=== PATIENT | male | born 1955 | race Caucasian/White ===

== ENCOUNTER 2016-11-08 11:11 | Emergency (ER) | payer OTHER ==
--- NOTE | 2016-11-08 12:08 | DIAGNOSTIC IMAGING REPORT ---
PROCEDURE: XR CHEST 1 VIEW INDICATION: CHEST PAIN TECHNIQUE: Portable AP view 11:45 a.m. COMPARISON: None. FINDINGS: Lungs are clear. Heart and mediastinum are normal. Thorax is normal. IMPRESSION: 1. Negative chest.
--- NOTE | 2016-11-08 13:05 | ED NURSING NOTES ---
Clinical Report - Nurses [address] [place] [address] 11/08/2016 11:14 Patient: JULIA RODRIGUEZ TRIAGE Triage time 1112. Acuity: LEVEL 2. Chief Complaint: CHEST PAIN and DISCOMFORT. Alert. No acute distress. SEPSIS SCREEN: Sepsis Screen. Negative (no infection suspected/documented). PONCHO COMA SCORE: Poncho Coma Scale: 15- eyes open spontaneously (4); best verbal response- oriented x 4 (5); best motor response- obeys commands (6). --11:30 Cristin Weinberg R.N. 11:12 11/08/16. BP: 157/87. HR: 70 (regular). RR: 15. O2 saturation: 96%. Temp: 97.5 F (oral). Pain level now: 11/06. --11:30 Cristin Weinberg R.N. Weight: 117.9 kg stated. Height/Length: 74 inches Per Patient. BMI: 33.4. --11:12 Cristin Weinberg R.N. Medications PriLOSEC Oral. --11:13 Cristin Weinberg R.N. Ambien Oral. --11:14 Cristin Weinberg R.N. Cialis Oral. --11:39 Cristin Weinberg R.N. TraZODone HCl Oral. --11:40 Cristin Weinberg R.N. Medication/allergy information source: the patient. --11:30 Cristin Weinberg R.N. Allergies No Known Drug Allergy. --11:26 Cristin Weinberg R.N. History Arrived by private vehicle. Historian: patient. Accompanied by family. Primary physician (Dr. Camacho- [facility]). ( Pt states having CP for the past 4 days, SOB, denies dizziness. Went to [facility] earlier today and was told come the ER. An EKG was performed, pt did not want and ambulance, drove here to get further evaluation. Pt does state that when laying down "makes it better" activity sometimes makes it "worst".). Onset. (4 days). He has had difficulty breathing. Reports experiencing sweating episodes. No nausea, vomiting, fever or cough. 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 PAST MEDICAL HX: Immunizations: up-to-date. SOCIAL HX: Never smoker. Alcohol use; consumes beer occasionally. No drug use. No infectious disease exposure. ABUSE ASSESSMENT: No report of abuse. SELF HARM ASSESSMENT: A self harm assessment was performed. The patient answered "no" to the question "Do you have thoughts of harming or killing yourself?" and "Have you recently had thoughts about harming or killing others?". FALL RISK ASSESSMENT: Fall risk assessment completed. No fall risk identified. NUTRITIONAL RISK ASSESSMENT: The nutritional risk assessment revealed no deficiencies. FUNCTIONAL ASSESSMENT: Functional assessment: no impairments noted. LEARNING NEEDS ASSESSMENT: The learning needs assessment revealed no barriers. --11:30 Cristin Weinberg R.N. PROBLEMS: IBS. Allergic Rhinitis. Depression. Bronchitis. --11:26 Cristin Weinberg R.N. Interventions 11:17 11/08/16. ID band on patient. --11:30 Cristin Weinberg R.N. PHYSICAL ASSESSMENT Ambulatory to room. GENERAL / NEURO / PSYCH: Alert. Oriented X 4. Appears in no acute distress. HEENT: Mucous membranes are pink. RESPIRATORY: Respirations not labored. Chest nontender. Breath sounds within normal limits. CVS: Normal sinus rhythm noted. Heart sounds within normal limits. Pulses within normal limits. Capillary refill less than 2 seconds. GI / : Abdomen soft and nontender. EXTREMITIES: No lower extremity edema. SKIN: Skin is warm and dry. Normal skin turgor. Skin is non-tender. --11:33 Cristin Weinberg R.N. NURSING PROGRESS NOTES 11:34 11/08/2016 Site #1 started via IV in the left antecubital space with an 20g angiocath; one attempt. Blood drawn: rainbow set. Labeled in the presence of the patient and sent to the lab. Saline lock flushed. --11:34 Cristin Weinberg R.N. Cardiac rhythm: normal sinus rhythm. The initial plan of care for this patient has been created This plan of care was discussed with the patient. sales advisor, pulse oximeter and NIBP monitor placed on patient. Patient ID band checked for patient name, birthdate and medical record number: patient confirmed. Blood samples drawn from the left antecubital space by nurse per protocol ; labeled in presence of the patient and sent to lab: madiha set. Reassurance given. Patient identifiers checked. Call light placed in reach. Side rails up x 1. Bed placed in lowest position. Brakes of bed on. Patient ready for evaluation- ED physician notified. --11:34 Cristin Weinberg R.N. 11:30 11/08/16. BP: 153/81. HR: 76. RR: 16. O2 saturation: 100% on room air. Pain level now: 11/06. --11:34 Cristin Weinberg R.N. The patient is calm. Overall patient status is the same- he states feels the same. ( Pressure still is consistent as per pt). GENERAL / NEURO / PSYCH: Denies anxiety. HEENT: Denies headache. RESPIRATORY: Denies difficulty breathing. CVS: The patient reports chest pain. GI / : Denies nausea. SKIN: Skin is warm. Skin color within normal limits. --11:35 Cristin Weinberg R.N. EKG time: (1120 AM). EKG was ordered, performed by a tech and shown to the ED physician. --11:43 Cristin Weinberg R.N. EKG time: (1120). EKG was ordered, performed by a tech and shown to the ED physician. --11:49 Maxi Villa ER Tech1. DISPOSITION / DISCHARGE 13:13 11/08/2016 Site #1 removed upon discharge. Catheter intact. Bandage applied. --13:13 Fred Elmore R.N. 13:13 11/08/16. Condition at departure: improved. The goals identified in the patient's plan of care were met. No learning barriers present. Discharge instructions provided and reviewed with the patient. Reviewed warnings. Reviewed medication(s). Treatments reviewed. Patient verbalized understanding. Written instructions provided in Montenegrin. The patient was discharged by the physician. He was discharged home and accompanied by family. He left the Emergency Department ambulatory and via private vehicle. Family member driving. FALL RISK ASSESSMENT: Fall risk assessment completed. No fall risk identified. --13:13 Fred Elmore R.N. 13:12 11/08/16. BP: 148/70. HR: 80. RR: 14. O2 saturation: 99% on room air. Temp: 98.1 F (oral). --13:13 Fred Elmore R.N. 13:13 11/08/16. Departure time: 13:13. --13:13 Fred Elmore R.N. Locked/Released at 11/08/2016 13:19 by Fred Elmore R.N.
--- NOTE | 2016-11-08 13:05 | ED CLINICAL REPORT ---
Clinical Report - Physicians/Mid Levels [facility] [address] [place] [address] 11/08/2016 11:14 Patient: JULIA RODRIGUEZ Time Seen: 11:22; initial patient contact. Arrived- By private vehicle. Historian- patient. HISTORY OF PRESENT ILLNESS Chief Complaint: CHEST PAIN. This started about 4 days ago and is still present. The patient cannot recall the circumstances at the onset. It is described as pressure and it is described as located in the right chest and central chest area. No radiation. At its maximum, severity described as mild. When seen in the E.D., severity described as mild. Modifying factors- worsened by supine position. Relieved by upright position. No nausea, vomiting, difficulty breathing or diaphoresis. Similar symptoms previously: None. Recent medical care: The patient was seen recently in a clinic (EKG and sent here from ). REVIEW OF SYSTEMS No fever, chills, cough, pedal edema or calf pain. All systems otherwise negative, except as recorded above. PAST HISTORY IBS. Allergic Rhinitis. Depression. Bronchitis. Medications: TraZODone HCl Oral. Cialis Oral. Ambien Oral. PriLOSEC Oral. Allergies: No Known Drug Allergy. SOCIAL HISTORY Never smoker. Occasional alcohol use. No drug use. ADDITIONAL NOTES The nursing notes have been reviewed. PHYSICAL EXAM Vital Signs: 11/08/2016 11:12 BP: 157/87. HR: 70. RR: 15. O2 saturation: 96%. Temp: 97.5 F. Pain level now: 10. Have been reviewed. Hypertensive. Heart rate normal. Respiratory rate normal. Temperature normal. Oxygen saturation normal. Appearance: Alert. Oriented X3. No acute distress. Eyes: Eyes normal inspection. ENT: Pharynx normal. Neck: Normal inspection. CVS: Normal heart rate and rhythm. Heart sounds normal. Respiratory: No respiratory distress. Breath sounds normal. Abdomen: Soft and nontender. Bowel sounds normal. No organomegaly. No mass. Skin: Normal skin color. No rash. Extremities: No calf tenderness. No lower extremity edema. Neuro: Oriented X 3. LABS, X-RAYS, AND EKG EKG: EKG time: (1120). No acute process. No acute ischemia. Normal EKG. Normal sinus rhythm. Rate: 71. Normal P waves. Normal QRS complex. Normal axis. Normal ST and T waves. Prolonged QTc (465). Prior EKG unavailable. The study has been interpreted contemporaneously by me. The study has been independently viewed by me. The EKG appears to be a good tracing. Interpretation time: 1120. Chest X-ray: No acute disease. Normal lung markings present. No infiltrate. Views: AP. Technique: good. The X-rays were independently viewed by me and interpreted contemporaneously by me. Prior films were not available for comparison. Laboratory Tests: CBC w Diff: (DESIRAE: 11/08/2016 11:20) ( MsgRcvd 11/08/2016 11:45) Final results Test Result Flag Units (Reference) WHITE BLOOD COUNT 6.8 K/uL (4.5-11.5) RED BLOOD COUNT 4.92 M/uL (4.50-5.90) HEMOGLOBIN 14.5 gm/dL (13.5-17.5) HEMATOCRIT 43.4 % (41.0-53.0) MEAN CELL VOLUME 88 fL (80-100) MEAN CORPUSCULAR HGB 30 pg (26-34) MEAN CORPUSCULAR HGB CONC 33 g/dL (31-37) RED CELL DISTRIBUTION WIDTH 13.7 % (11.6-14.8) PLATELET COUNT 281 K/uL (150-400) NEUTROPHIL % 66.0 % (50-75) LYMPH % 24.0 L % (25-40) MONO % 7.3 % (3-14) EOSINOPHIL % 2.2 % (0-4) BASOPHIL % 0.5 % (0-2) CHEM 13 PANEL: (DESIRAE: 11/08/2016 11:20) ( MsgRcvd 11/08/2016 12:16) Final results Test Result Flag Units (Reference) GLUCOSE 89 mg/dL (70-110) BUN 20 H mg/dL (7-18) CREATININE 0.9 mg/dL (0.6-1.3) Estimated GFR >60 mL/min Estimated GFR- >60 mL/min Note: Persistent reduction over 3 months in eGFR<60 mL/min/1.73 m2 defines CKD. Patients with eGFR values>=60 mL/min/1.73 m2 may also have CKD if evidence ofpersistent proteinuria. Additional information may be foundat www.kidney.org. SODIUM 143 mmol/L (136-145) POTASSIUM 3.5 mmol/L (3.5-5.1) CHLORIDE 106 mmol/L (98-107) CARBON DIOXIDE 26 mmol/L (21-32) CALCIUM 8.7 mg/dL (8.5-10.1) TOTAL PROTEIN 7.2 g/dL (6.4-8.2) ALBUMIN 3.8 g/dL (3.3-5.0) BILIRUBIN, TOTAL 0.3 mg/dL (0.0-1.0) ALKALINE PHOSPHATASE 68 U/L (46-116) AST (SGOT) 19 U/L (15-37) ALT (SGPT) 22 U/L (12-78) MAGNESIUM 2.0 mg/dL (1.8-2.4) CPK 305 H U/L (24-260) CK-MB 2.8 ng/mL (0.5-3.2) %CKMB 0.9 % (0.0-4.0) TROPONIN I <0.05 ng/mL (0.00-1.5) TROPONIN REFERENCE RANGE:<0.1 NEGATIVE0.1-1.5 INDETERMINANT>1.5 POSITIVE . PROGRESS AND PROCEDURES Disposition: Discharged home in good condition. Condition: good. CLINICAL IMPRESSION Atypical chest pain .12 lead EKG performed. INSTRUCTIONS No strenuous activity today, tomorrow. Your Current Medications: CONTINUE TAKING THE FOLLOWING MEDICATIONS: Ambien Oral. Cialis Oral. PriLOSEC Oral. TraZODone HCl Oral. Follow-up: Follow up with your doctor in about two days if not better. Call for an appointment. Screening today revealed the patient's blood pressure to be in the hypertensive range. The patient should follow up with a primary care provider for blood pressure management. (Electronically signed by Leonardo Rodgers Dr. 11/08/2016 13:05)
--- NOTE | 2016-11-08 13:05 | ED NURSING NOTES ---
Clinical Report - Nurses [address] [place] [address] 11/08/2016 11:14 Patient: JULIA RODRIGUEZ TRIAGE Triage time 1112. Acuity: LEVEL 2. Chief Complaint: CHEST PAIN and DISCOMFORT. Alert. No acute distress. SEPSIS SCREEN: Sepsis Screen. Negative (no infection suspected/documented). PONCHO COMA SCORE: Poncho Coma Scale: 15- eyes open spontaneously (4); best verbal response- oriented x 4 (5); best motor response- obeys commands (6). --11:30 Cristin Weinberg R.N. 11:12 11/08/16. BP: 157/87. HR: 70 (regular). RR: 15. O2 saturation: 96%. Temp: 97.5 F (oral). Pain level now: 11/06. --11:30 Cristin Weinberg R.N. Weight: 117.9 kg stated. Height/Length: 74 inches Per Patient. BMI: 33.4. --11:12 Cristin Weinberg R.N. Medications PriLOSEC Oral. --11:13 Cristin Weinberg R.N. Ambien Oral. --11:14 Cristin Weinberg R.N. Cialis Oral. --11:39 Cristin Weinberg R.N. TraZODone HCl Oral. --11:40 Cristin Weinberg R.N. Medication/allergy information source: the patient. --11:30 Cristin Weinberg R.N. Allergies No Known Drug Allergy. --11:26 Cristin Weinberg R.N. History Arrived by private vehicle. Historian: patient. Accompanied by family. Primary physician (Dr. Camacho- [facility]). ( Pt states having CP for the past 4 days, SOB, denies dizziness. Went to [facility] earlier today and was told come the ER. An EKG was performed, pt did not want and ambulance, drove here to get further evaluation. Pt does state that when laying down "makes it better" activity sometimes makes it "worst".). Onset. (4 days). He has had difficulty breathing. Reports experiencing sweating episodes. No nausea, vomiting, fever or cough. 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 PAST MEDICAL HX: Immunizations: up-to-date. SOCIAL HX: Never smoker. Alcohol use; consumes beer occasionally. No drug use. No infectious disease exposure. ABUSE ASSESSMENT: No report of abuse. SELF HARM ASSESSMENT: A self harm assessment was performed. The patient answered "no" to the question "Do you have thoughts of harming or killing yourself?" and "Have you recently had thoughts about harming or killing others?". FALL RISK ASSESSMENT: Fall risk assessment completed. No fall risk identified. NUTRITIONAL RISK ASSESSMENT: The nutritional risk assessment revealed no deficiencies. FUNCTIONAL ASSESSMENT: Functional assessment: no impairments noted. LEARNING NEEDS ASSESSMENT: The learning needs assessment revealed no barriers. --11:30 Cristin Weinberg R.N. PROBLEMS: IBS. Allergic Rhinitis. Depression. Bronchitis. --11:26 Cristin Weinberg R.N. Interventions 11:17 11/08/16. ID band on patient. --11:30 Cristin Weinberg R.N. PHYSICAL ASSESSMENT Ambulatory to room. GENERAL / NEURO / PSYCH: Alert. Oriented X 4. Appears in no acute distress. HEENT: Mucous membranes are pink. RESPIRATORY: Respirations not labored. Chest nontender. Breath sounds within normal limits. CVS: Normal sinus rhythm noted. Heart sounds within normal limits. Pulses within normal limits. Capillary refill less than 2 seconds. GI / : Abdomen soft and nontender. EXTREMITIES: No lower extremity edema. SKIN: Skin is warm and dry. Normal skin turgor. Skin is non-tender. --11:33 Cristin Weinberg R.N. NURSING PROGRESS NOTES 11:34 11/08/2016 Site #1 started via IV in the left antecubital space with an 20g angiocath; one attempt. Blood drawn: rainbow set. Labeled in the presence of the patient and sent to the lab. Saline lock flushed. --11:34 Cristin Weinberg R.N. Cardiac rhythm: normal sinus rhythm. The initial plan of care for this patient has been created This plan of care was discussed with the patient. case monitor, pulse oximeter and NIBP monitor placed on patient. Patient ID band checked for patient name, birthdate and medical record number: patient confirmed. Blood samples drawn from the left antecubital space by nurse per protocol ; labeled in presence of the patient and sent to lab: madiha set. Reassurance given. Patient identifiers checked. Call light placed in reach. Side rails up x 1. Bed placed in lowest position. Brakes of bed on. Patient ready for evaluation- ED physician notified. --11:34 Cristin Weinberg R.N. 11:30 11/08/16. BP: 153/81. HR: 76. RR: 16. O2 saturation: 100% on room air. Pain level now: 11/06. --11:34 Cristin Weinberg R.N. The patient is calm. Overall patient status is the same- he states feels the same. ( Pressure still is consistent as per pt). GENERAL / NEURO / PSYCH: Denies anxiety. HEENT: Denies headache. RESPIRATORY: Denies difficulty breathing. CVS: The patient reports chest pain. GI / : Denies nausea. SKIN: Skin is warm. Skin color within normal limits. --11:35 Cristin Weinberg R.N. EKG time: (1120 AM). EKG was ordered, performed by a tech and shown to the ED physician. --11:43 Cristin Weinberg R.N. EKG time: (1120). EKG was ordered, performed by a tech and shown to the ED physician. --11:49 Maxi Villa ER Tech1. DISPOSITION / DISCHARGE 13:13 11/08/2016 Site #1 removed upon discharge. Catheter intact. Bandage applied. --13:13 Fred Elmore R.N. 13:13 11/08/16. Condition at departure: improved. The goals identified in the patient's plan of care were met. No learning barriers present. Discharge instructions provided and reviewed with the patient. Reviewed warnings. Reviewed medication(s). Treatments reviewed. Patient verbalized understanding. Written instructions provided in Dominican. The patient was discharged by the physician. He was discharged home and accompanied by family. He left the Emergency Department ambulatory and via private vehicle. Family member driving. FALL RISK ASSESSMENT: Fall risk assessment completed. No fall risk identified. --13:13 Fred Elmore R.N. 13:12 11/08/16. BP: 148/70. HR: 80. RR: 14. O2 saturation: 99% on room air. Temp: 98.1 F (oral). --13:13 Fred Elmore R.N. 13:13 11/08/16. Departure time: 13:13. --13:13 Fred Elmore R.N. Locked/Released at 11/08/2016 13:19 by Fred Elmore R.N.
--- NOTE | 2016-11-08 13:05 | ED ORDER SUMMARY ---
..... Patient: JULIA RODRIGUEZ OrderSheet [facility] VisitID: [id number] [address] [place] [address] 61y, M Registration Date/Time: 11/08/2016 ORDER SHEET Weight: 117.9 kg (stated) Allergies: No Known Drug Allergy GENERAL ORDERS: Chest 1V Urgent (11:35 11/08/2016 EHassan R.N. per protocol) (Ack 11:39 JOVIoerner) (12:12 EHassan R.N.) Enlisted Advisor (Continuous) (11:35 11/08/2016 EHassan R.N. per protocol) (11:36 KWilliams R.N.) Cardiac Panel Stat (11:35 11/08/2016 EHassan R.N. per protocol) (11:36 KWilliams R.N.) Pulse oximeter (11:35 11/08/2016 EHassan R.N. per protocol) (11:47 EHassan R.N.) EKG - ER Stat (11:35 11/08/2016 EHassan R.N. per protocol) (11:36 KWilliams R.N.) Vitals (11:35 11/08/2016 EHassan R.N. per protocol) (11:47 EHassan R.N.) NPO (11:35 11/08/2016 EHassan R.N. per protocol) (11:47 EHassan R.N.) MEDICATION ORDERS: IV FLUIDS: IV Saline Lock (11:35 11/08/2016 EHassan R.N. per protocol) (11:36 EHassan R.N.) ORDER SHEET NOTES: [Electronically signed by Leonardo Rodgers Dr. (13:05 11/08/2016)] [Electronically signed by Fred Elmore R.N. (13:19 11/08/2016)] [Electronically locked/signed by Fred Elmore R.N. (13:19 11/08/2016)]
--- NOTE | 2016-11-08 13:05 | ED ORDER SUMMARY ---
..... Patient: JULIA RODRIGUEZ OrderSheet [facility] VisitID: [id number] [address] [place] [address] 61y, M Registration Date/Time: 11/08/2016 ORDER SHEET Weight: 117.9 kg (stated) Allergies: No Known Drug Allergy GENERAL ORDERS: Chest 1V Urgent (11:35 11/08/2016 EHassan R.N. per protocol) (Ack 11:39 JOVIoerner) (12:12 EHassan R.N.) Aircraft Technician (Continuous) (11:35 11/08/2016 EHassan R.N. per protocol) (11:36 KWilliams R.N.) Cardiac Panel Stat (11:35 11/08/2016 EHassan R.N. per protocol) (11:36 KWilliams R.N.) Pulse oximeter (11:35 11/08/2016 EHassan R.N. per protocol) (11:47 EHassan R.N.) EKG - ER Stat (11:35 11/08/2016 EHassan R.N. per protocol) (11:36 KWilliams R.N.) Vitals (11:35 11/08/2016 EHassan R.N. per protocol) (11:47 EHassan R.N.) NPO (11:35 11/08/2016 EHassan R.N. per protocol) (11:47 EHassan R.N.) MEDICATION ORDERS: IV FLUIDS: IV Saline Lock (11:35 11/08/2016 EHassan R.N. per protocol) (11:36 EHassan R.N.) ORDER SHEET NOTES: [Electronically signed by Leonardo Rodgers Dr. (13:05 11/08/2016)] [Electronically signed by Fred Elmore R.N. (13:19 11/08/2016)] [Electronically locked/signed by Fred Elmore R.N. (13:19 11/08/2016)]
--- NOTE | 2016-11-08 13:20 | ED MAR SUMMARY ---
..... Medication Administration Record [facility] [address], [place] [id number] Patient: JULIA RODRIGUEZ Visit ID: [id number] 61y, M Weight: 117.9 kg Height/Length: 74 in BMI: 33.4 ALLERGIES: No Known Drug Allergy
--- NOTE | 2016-11-08 13:20 | ED DISCHARGE INSTRUCTIONS ---
Patient: JULIA RODRIGUEZ General Instructions [facility] VisitID: [id number] [place] [address] 61y, M Registration Date/Time: 11/08/2016 Atypical chest pain .12 lead EKG performed. INSTRUCTIONS No strenuous activity today, tomorrow. Your Current Medications: CONTINUE TAKING THE FOLLOWING MEDICATIONS: Ambien Oral. Cialis Oral. PriLOSEC Oral. TraZODone HCl Oral. Follow-up: Follow up with your doctor in about two days if not better. Call for an appointment. Screening today revealed the patient's blood pressure to be in the hypertensive range. The patient should follow up with a primary care provider for blood pressure management. ADDITIONAL INFORMATION Chest Pain, Noncardiac Based on your visit today, the exact cause of your chest pain is not certain. Your condition does not seem serious and your pain does not appear to be coming from your heart. However, sometimes the signs of a serious problem take more time to appear. Therefore, please watch for the warning signs listed below. Home Care: Rest today and avoid strenuous activity. Take any prescribed medicine as directed. Follow Up with your doctor or this facility as instructed or if you do not start to feel better within 24 hours. Get Prompt Medical Attention if any of the following occur: A change in the type of pain: if it feels different, becomes more severe, lasts longer, or begins to spread into your shoulder, arm, neck, jaw or back Shortness of breath or increased pain with breathing Cough with dark colored sputum (phlegm) or blood Weakness, dizziness, or fainting Fever of 100.4F (38C) or higher, or as directed by your healthcare provider Swelling, pain or redness in one leg You have been given the following additional information: Chest Pain, Noncardiac No strenuous activity today, tomorrow. (Electronically signed by Leonardo Rodgers Dr. 11/08/2016 13:05)
--- NOTE | 2016-11-08 13:20 | ED MED RECONCILIATION SUMMARY ---
Patient: JULIA RODRIGUEZ Medication Reconciliation Report [facility] VisitID: [id number] [address] [place] [address] 61y, M Registration Date/Time: 11/08/2016 Weight: 117.9 kg Height/Length: 74 in. BMI: 33.4 ALLERGIES: No Known Drug Allergy The patient's Home Medications are listed below: CONTINUE TAKING THE FOLLOWING MEDICATIONS: Ambien Oral Cialis Oral PriLOSEC Oral TraZODone HCl Oral The source(s) of the original Home Medication information: patient The following Medications were given to the patient in the Emergency Department: None. The following Medications were prescribed to the patient: None.
--- NOTE | 2016-11-08 13:20 | ED DISCHARGE INSTRUCTIONS ---
Patient: JULIA RODRIGUEZ General Instructions [facility] VisitID: [id number] [place] [address] 61y, M Registration Date/Time: 11/08/2016 Atypical chest pain .12 lead EKG performed. INSTRUCTIONS No strenuous activity today, tomorrow. Your Current Medications: CONTINUE TAKING THE FOLLOWING MEDICATIONS: Ambien Oral. Cialis Oral. PriLOSEC Oral. TraZODone HCl Oral. Follow-up: Follow up with your doctor in about two days if not better. Call for an appointment. Screening today revealed the patient's blood pressure to be in the hypertensive range. The patient should follow up with a primary care provider for blood pressure management. ADDITIONAL INFORMATION Chest Pain, Noncardiac Based on your visit today, the exact cause of your chest pain is not certain. Your condition does not seem serious and your pain does not appear to be coming from your heart. However, sometimes the signs of a serious problem take more time to appear. Therefore, please watch for the warning signs listed below. Home Care: Rest today and avoid strenuous activity. Take any prescribed medicine as directed. Follow Up with your doctor or this facility as instructed or if you do not start to feel better within 24 hours. Get Prompt Medical Attention if any of the following occur: A change in the type of pain: if it feels different, becomes more severe, lasts longer, or begins to spread into your shoulder, arm, neck, jaw or back Shortness of breath or increased pain with breathing Cough with dark colored sputum (phlegm) or blood Weakness, dizziness, or fainting Fever of 100.4F (38C) or higher, or as directed by your healthcare provider Swelling, pain or redness in one leg You have been given the following additional information: Chest Pain, Noncardiac No strenuous activity today, tomorrow. (Electronically signed by Leonardo Rodgers Dr. 11/08/2016 13:05)
--- NOTE | 2016-11-08 13:20 | ED MED RECONCILIATION SUMMARY ---
Patient: JULIA RODRIGUEZ Medication Reconciliation Report [facility] VisitID: [id number] [address] [place] [address] 61y, M Registration Date/Time: 11/08/2016 Weight: 117.9 kg Height/Length: 74 in. BMI: 33.4 ALLERGIES: No Known Drug Allergy The patient's Home Medications are listed below: CONTINUE TAKING THE FOLLOWING MEDICATIONS: Ambien Oral Cialis Oral PriLOSEC Oral TraZODone HCl Oral The source(s) of the original Home Medication information: patient The following Medications were given to the patient in the Emergency Department: None. The following Medications were prescribed to the patient: None.
--- NOTE | 2016-11-08 13:20 | ED MAR SUMMARY ---
..... Medication Administration Record [facility] [address], [place] [id number] Patient: JULIA RODRIGUEZ Visit ID: [id number] 61y, M Weight: 117.9 kg Height/Length: 74 in BMI: 33.4 ALLERGIES: No Known Drug Allergy
== END 2016-11-08 13:13 | disposition home or self-care (01) ==
LOC: ED SRH 11:11
DX: R07.89 Other chest pain (principal)
CPT/HCPCS: 90100; 90616; 90617; 92610; 92720; 95059